=== PATIENT | female | born 1985 | race Two or more races ===

== ENCOUNTER 2020-01-11 20:31 | Emergency (ER) | payer OTHER, MEDICAID ==
[~2020-01-11] VITALS: Ht 165.1 cm; Wt 68.0 kg
--- NOTE | 2020-01-11 20:57 | NUR ---
Dr. Mabry at bedside for MSE
--- NOTE | 2020-01-11 20:59 | NUR ---
Urine collected and sent to lab
[2020-01-11 21:04] LABS: *BILIRUBIN,URIN NEGATIVE (NEGATIVE); *BLOOD, URINE 3+ (NEGATIVE); *CLARITY,URINE CLOUDY (CLEAR); *COLOR,URINE YELLOW (YELLOW); *KETONES,URINE NEGATIVE (NEGATIVE); *UROBILINOGEN,URINE 0.2 E.U./dl (NORMAL); LEUKOCYTE ESTERASE ,URINE 3+ (NEGATIVE); NITRITE, URINE NEGATIVE (NEGATIVE); PH,URINE >=9.0 (5.0-8.0); UGLUCOSE NEGATIVE (NEGATIVE)
[2020-01-11 21:05] LABS: BACTERIA,URINE MODERATE /HPF (NONE SEEN); MUCUS,URINE FEW /LPF (0-FEW); RBC,URINE 20-50 /HPF (0-3); SQUAMOUS EPITHELIAL CELL,UR FEW /HPF (NONE SEEN); WBC,URINE 50-80 /HPF (0-3)
[2020-01-11 21:06] LABS: *URINE HCG, QUAL NEGATIVE (NEGATIVE)
[2020-01-11] MEDS ORDERED: KETOROLAC TROMETHAMINE 30 MG INJ ONE (21:13)
[2020-01-11] MEDS ORDERED: KETOROLAC TROMETHAMINE 30 MG INJ IM ONE (21:15)
--- NOTE | 2020-01-11 21:47 | NUR ---
US at bedside
--- NOTE | 2020-01-11 22:38 | NUR ---
Patient discharged to home in stable condition. Written and verbal after care instructions given. Patient verbalizes understanding of instructions. Stressed follow up or return to ER for worsening s/s. Patient ambulating with steady gait. NAD noted
[2020-01-11 22:41] VITALS: BP 126/73
== END 2020-01-11 22:38 | disposition home or self-care (01) ==
LOC: ER 20:38
DX: N39.0 Urinary tract infection, site not specified (principal); N21.0 Calculus in bladder; F17.210 Nicotine dependence, cigarettes, uncomplicated
CPT/HCPCS: 76856; 81001; 84703; 87077; 87086; 96372; 99284; 99406; J1885; A4663